=== PATIENT | male | born 2000 ===

== ENCOUNTER 2023-08-26 14:02 | Emergency (ER) | payer OTHER ==
[~2023-08-26] VITALS: Ht 172.7 cm; Wt 68.2 kg
[2023-08-26 14:36] VITALS: TEMP 98.3
[2023-08-26] MEDS ORDERED: IBUPROFEN 600 MG TABLET PO ONE (14:45)
[2023-08-26 16:30] VITALS: BP 111/64; PULSE 60; RESP 12
== END 2023-08-26 16:43 | disposition home or self-care (01) ==
LOC: EMS 14:03
DX: S62.395A Other fracture of fourth metacarpal bone, left hand, initial encounter for closed fracture (principal); X58.XXXA Exposure to other specified factors, initial encounter; Y93.B2 Activity, push-ups, pull-ups, sit-ups; Y92.89 Other specified places as the place of occurrence of the external cause; Y99.8 Other external cause status
CPT/HCPCS: 99283